=== PATIENT | female | born 1965 | race African-American/Black ===

== ENCOUNTER 2019-05-10 07:38 | Day surgery (SDC) | payer OTHER ==
[2019-05-09 11:45] VITALS: BMI 19.7
[2019-05-10] MEDS ORDERED: LIDOCAINE HCL 2% (20ML MULTI-DOSE VIAL) ONE (10:35)
[2019-05-10] MEDS ORDERED: BUPIVACAINE HCL/PF 0.5% (5 MG/ML) 30 ML VIAL IJ ONE ×2 (10:35→11:11)
[2019-05-10] MEDS ORDERED: MIDAZOLAM HCL 2 MG/2 ML SINGLE DOSE VIAL ONE (10:57)
[2019-05-10] MEDS ORDERED: PROPOFOL 20 ML ONE ×2 (10:57→11:41)
[2019-05-10] MEDS ORDERED: ceFAZolin SODIUM 1 GM VIAL ONE (11:07)
[2019-05-10] MEDS ORDERED: SODIUM CHLORIDE 0.9% P/F 10 ML VIAL IJ ONE (11:07)
[2019-05-10] MEDS ORDERED: LIDOCAINE HCL/PF 2% SDV 5ML VIAL ONE (11:07)
[2019-05-10] MEDS ORDERED: ceFAZolin SODIUM 1 GM VIAL IVPB ONE (11:09)
[2019-05-10] MEDS ORDERED: LIDOCAINE HCL 2% (50ML VIAL) NR ONE (11:11)
[2019-05-10] MEDS ORDERED: DEXAMETHASONE SOD PHOSPHATE 4 MG/1 ML VIAL ONE (12:05)
[2019-05-10] MEDS ORDERED: DEXAMETHASONE SOD PHOSPHATE 4 MG/1 ML VIAL NR ONE (12:08)
[2019-05-10] MEDS ORDERED: KETOROLAC TROMETHAMINE 30 MG/1 ML VIAL ONE (12:15)
[2019-05-10 13:14] VITALS: TEMP 97.4
[2019-05-10 14:09] VITALS: BP 117/67; PULSE 71
--- NOTE | 2019-05-14 14:24 | PATH ---
Surgical Pathology Report Patient Name: LAURA ZHAO [facility]. Rec. #: [id number] /Age/Gender: 1965 (Age: 54) / F Account: [id number] Location: [facility] SUR[facility]ICAL Taken: 05/10/2019 Received: 05/10/2019 Reported: 05/14/2019 Physicians: Alexander Reis DPM Specimen(s) Received BONE AND JOINT CAPSULE LEFT BUNION Clinical History Left hallux valgus Final Diagnosis BONE AND JOINT CAPSULE, BUNION, LEFT, REBEL BUNIONECTOMY: BONE WITH DEGENERATIVE CHANGES. BENIGN DENSE FIBROCONNECTIVE AND FIBROADIPOSE TISSUE. Electronically Signed Albertina Moran M.D. Gross Description Received in formalin labeled "bone and joint capsule left bunion," are 2 perea-yellow portions of bone measuring 0.8 x 0.6 x 0.2 cm and 1.8 x 1.4 x 0.4 cm. Also received within the same container is a 2.0 x 0.8 x 0.3 cm perea portion of soft tissue. Family Services Coordinator sections are submitted in one cassette, following decalcification. 05/13/2019 [facility]05/13/2019
== END 2019-05-10 14:11 | disposition home or self-care (01) ==
LOC: JASU-SURG 07:38
PROVIDERS: ATTEND Podiatrist
PROC: 0QSP04Z Reposition Left Metatarsal with Internal Fixation Device, Open Approach (ICD-10-PCS; principal; 2019-05-10 10:30)
DX: M20.12 Hallux valgus (acquired), left foot (principal)
CPT/HCPCS: 73630-TC-LT; 84703; 88304-TC; 88311-TC; 97116-GP